=== PATIENT | female | born 1970 | race Caucasian/White ===

== ENCOUNTER 2017-08-08 06:48 | Emergency (ER) | payer MEDICAID ==
[~2017-08-08] VITALS: Ht 149.9 cm; Wt 61.0 kg
[2017-08-08] MEDS ORDERED: KETOROLAC 60MG/2ML VIAL IM ONE (08:15)
[2017-08-08] MEDS ORDERED: MECLIZINE 25MG TABLET PO ONE (08:15)
[2017-08-08 08:29] LABS: BASOPHILS % 0.5 % (0.0-2.0); EOSINOPHILS % 1.5 % (0.0-5.0); HEMATOCRIT. 46.6 % (36.0-48.0); HEMOGLOBIN. 15.1 g/dL (12.0-16.0); LYMPHOCYTES % 17.9 % (20.0-50.0); MEAN CORPUSCULAR HEMOGLOBIN 27.2 pg (28.0-32.0); MEAN CORPUSCULAR VOLUME 83.8 fL (81.0-99.0); MEAN PLATELET VOLUME 8.1 fl (7.4-10.4); MONOCYTES % 6.5 % (2.0-8.0); NEUTROPHILS % 73.6 % (40.0-76.0); PLATELET 326 x1000/uL (130-400); RED BLOOD CELL COUNT 5.56 mill/uL (4.2-5.4)
[2017-08-08 08:43] LABS: CARBON DIOXIDE 29 mEq/L (21-32); CHLORIDE 100 mEq/L (98-107)
[2017-08-08 10:00] VITALS: BP 143/90
== END 2017-08-08 12:44 | disposition home or self-care (01) ==
LOC: ER 06:55
DX: E11.65 Type 2 diabetes mellitus with hyperglycemia (principal); Z98.51 Tubal ligation status
CPT/HCPCS: 36415; 70450; 80053; 81025; 85025; 96372; 99285; J1885; Z7610; J8597

== ENCOUNTER 2023-07-27 19:54 | Emergency (ER) | payer MEDICAID, OTHER ==
[~2023-07-27] VITALS: Ht 152.4 cm; Wt 57.2 kg
[2023-07-27 21:03] VITALS: BP 155/101; TEMP 98.7; O2SAT 97
[2023-07-27 21:09] VITALS: PULSE 102; RESP 16
[2023-07-27] MEDS ORDERED: NAPR500T7 MT (22:46)
[2023-07-27] MEDS ORDERED: LIDO15CR11 TP (22:46)
[2023-07-27] MEDS ORDERED: VALA100044 MT (22:46)
[2023-07-27] MEDS ORDERED: GABA-532 MT (22:46)
== END 2023-07-27 23:59 | disposition home or self-care (01) ==
LOC: ER 19:54
DX: B02.9 Zoster without complications (principal); E11.9 Type 2 diabetes mellitus without complications; Z98.51 Tubal ligation status
CPT/HCPCS: 99283